=== PATIENT | male | born 1965 | race Hispanic/Latino ===

== ENCOUNTER 2016-10-16 14:42 | Inpatient (IN) | payer OTHER ==
--- NOTE | 2016-10-16 15:09 | ED PDOC ---
HPI:STROKE - Time Time: 15:07 - Historian Historian: Patient - Chief Complaint Chief Complaint: Weakness - Onset Date: 10/16/16 Time: 07:00 Onset: Hours (8) - Timing Timing: Currently Symptomatic - Context Context: Standing - Location Locate left: Upper extremity - Severity of pain Maximum severity:: Moderate Pain Scale:: 0 Severity Current: Moderate Pain Scale:: 0 - Associated Symptoms Associated symptoms:: Headache, Visual (Blurry) - Exacerbated by Exacerbated by:: Nothing - Relieved by Relieved by:: Nothing - TPA Positive for Contraindication: Yes Reason tPA is not being Administered: 8 hrs since onset NIHSS Stroke Scale - How Severe is the Stroke Level of Consciousness: 0=Alert LOC to Questions: 0=Both comments correct LOC to commands: 0=Obeys both correctly Best Gaze: 0=Normal Visual: 1=Partial hemianopia Facial: 0=Normal Motor Arm - Left: 1=Drift noted before 10 sec Motor Arm - Right: 0=No drift Motor Leg - Left: 1=Drift before 5 sec Motor Leg - Right: 0=No drift Limb Ataxia: 0=Absent Sensory: 0=Normal Best Language: 0=No aphasia Dysarthia: 0=Normal articulation Extinction & Inattention (Neglect): 1=Partial neglect (mild valerie-attention) Score: 4 rTPA Inclusion/Exclusion - Refusal of Treatment Patient Refused Treatment: No - Inclusion Criteria for Altepase Patient is 18 years or Older: Yes The Clinical Diagnosis of Ischemic Stroke That is Causing a Potentially Disabling Neurological Deficit: Yes Time of Onset is Well Established to be Less Than 270 Minute Before Treatment Would Begin: No Risk/Benefit Discussed With Patient/Family Member Present: No Past Medical History Vital Signs: Last Vital Signs Temp 98.4 F 10/16/16 14:55 Pulse 108 H 10/16/16 14:55 Resp 16 10/16/16 14:55 BP 144/95 H 10/16/16 14:55 Pulse Ox 96 10/16/16 14:55 - Medical History PMH: HTN, Malignancy (Thyroid, bladder) Other PMH: GI bleed - Surgical History Other surgeries: s/p thyroidectomy, parathyroidectomy - Family History Family History: States: Unknown Family Hx - Allergies Allergies/Adverse Reactions: Allergies Allergy/AdvReac Type Severity Reaction Status Date / Time Penicillins AdvReac ANAPHYLAXIS Verified 10/16/16 15:00 Review of Systems ROS Statement: Except As Marked, All Systems Reviewed And Found Negative Neurological: Positive for: Weakness (Left arm and left leg), Headache Physical Exam - Reviewed Nursing Documentation Reviewed: Yes Vital Signs Reviewed: Yes - Physical Exam Appears: Positive for: Non-toxic, No Acute Distress Head Exam: Positive for: ATRAUMATIC, NORMAL INSPECTION, NORMOCEPHALIC Skin: Positive for: Normal Color, Warm, DRY Eye Exam: Positive for: EOMI, Normal appearance, PERRL ENT: Positive for: Normal ENT Inspection Neck: Positive for: Normal, Painless ROM Cardiovascular/Chest: Positive for: Regular Rate, Rhythm Respiratory: Positive for: CNT, Normal Breath Sounds Gastrointestinal/Abdominal: Positive for: Normal Exam, Bowel Sounds, Soft Back: Positive for: Normal Inspection Extremity: Positive for: Normal ROM Neurologic/Psych: Positive for: Alert, Oriented, Motor/Sensory Deficits (Motor left upper and lower drift before 10 seconds. Decreased sensation left upper and lower ext. Extinction right gaze.) - ECG O2 Sat by Pulse Oximetry: 96 Medical Decision Making Medical Decision Making: Discussed with Dr. Brito, neurologist, recommends ASA 81 mg, Magnesium Sulfate 2 gms IV and MRI/MRA in AM Disposition - Clinical Impression Clinical Impression: Cerebrovascular accident (CVA) - Patient ED Disposition Is Patient to be Admitted: Yes - Disposition Disposition Time: 15:50 Condition: FAIR - Pt Status Changed To: Hospital Disposition Of: Inpatient - Admit Certification Admit to Inpatient:: After my assessment, the patient will require hospitalization for at least two midnights. This is because of the severity of symptoms shown, intensity of services needed, and/or the medical risk in this patient being treated as an outpatient. - POA Present On Arrival: None
--- NOTE | 2016-10-16 15:37 | CT ---
PROCEDURE: CT HEAD WITHOUT CONTRAST. HISTORY: L sided deficit, code stroke COMPARISON: None available. TECHNIQUE: Axial computed tomography images were obtained through the head/brain without intravenous contrast. Coronal and sagittal reconstructed images. Radiation dose: Total exam DLP = 867.63 mGy-cm. This CT exam was performed using one or more of the following dose reduction techniques: Automated exposure control, adjustment of the mA and/or kV according to patient size, and/or use of iterative reconstruction technique. FINDINGS: HEMORRHAGE: No intracranial hemorrhage. BRAIN: No mass effect or edema. No atrophy or chronic microvascular ischemic changes. VENTRICLES: Unremarkable. No hydrocephalus. CALVARIUM: Unremarkable. PARANASAL SINUSES: Unremarkable as visualized. No significant inflammatory changes. MASTOID AIR CELLS: Unremarkable as visualized. No inflammatory changes. OTHER FINDINGS: None. IMPRESSION: No acute intracranial abnormalities. No significant findings to account for the clinical presentation. Code stroke protocol: Study completed 15:11. Radiologist notified 15:26. Results conveyed verbally at 15:33. I discussed the findings with the attending physician in the emergency department Levon Horner MD. Interpretation finalized and available for review 15:36. October 16, 2016.
[2016-10-16] MEDS ORDERED: Magnesium Sulfate 2 GM in Sodium Chloride 0.9% 100 ML IVPB ONE (15:46)
[2016-10-16] MEDS ORDERED: Sodium Chloride 0.9% 1,000 ML IV STA (15:46)
[2016-10-16 15:52] LABS: BASO % 1.1 % (0.0-2.0); EOS # 0.2 K/uL (0.0-0.7); EOS % 5.3 % (0.0-4.0); HEMATOCRIT 36.3 % (35.0-51.0); LYMPH # 1.5 K/uL (1.0-4.3); LYMPH % 35.5 % (20.0-40.0); MEAN CELL VOLUME 83.3 fl (80.0-94.0); MEAN CORPUSCULAR HEMOGLOBIN 27.1 pg (27.0-31.0); MEAN CORPUSCULAR HGB CONC 32.5 g/dL (33.0-37.0); MEAN PLATELET VOLUME 7.2 fl (7.2-11.7); MONO # 0.5 K/uL (0.0-0.8); MONO % 12.6 % (0.0-10.0); NEUT # 1.9 K/uL (1.8-7.0); NEUT % 45.5 % (50.0-75.0); NRBC % 0.1 % (0.0-0.0); RED CELL DISTRIBUTION WIDTH 17.9 % (11.5-14.5); WHITE BLOOD COUNT 4.2 K/uL (4.8-10.8)
[2016-10-16 15:58] LABS: ALB/GLOB RATIO 1.3 (1.0-2.1); ALCOHOL SERUM < 10 mg/dl (0-10); ALKALINE PHOSPHATASE 132 U/L (38-126); ALT/SGPT 34 U/L (21-72); AST/SGOT 30 U/L (17-59); BILIRUBIN,TOTAL 0.3 mg/dl (0.2-1.3); BLOOD UREA NITROGEN 22 mg/dl (9-20); CALCIUM 9.5 mg/dL (8.4-10.2); CARBON DIOXIDE 24 mmol/L (22-30); CHLORIDE 108 mmol/L (98-107); CHOLESTEROL 106 mg/dL (0-199); GFR AFRICAN-AMERICAN > 60; GLUCOSE,RANDOM 115 mg/dL (75-110); POTASSIUM 4.2 MMOL/L (3.6-5.0); SODIUM 149 mmol/l (132-148); TOTAL PROTEIN 7.3 G/DL (6.3-8.2)
--- NOTE | 2016-10-16 16:07 | RAD ---
HISTORY: Code stroke protocol. Portable study 15:39. COMPARISON: No prior. FINDINGS: LUNGS: No active pulmonary disease. PLEURA: No significant pleural effusion identified, no pneumothorax apparent. CARDIOVASCULAR: No radiographic findings to suggest acute or significant cardiovascular disease. Low OSSEOUS STRUCTURES: No significant abnormalities. VISUALIZED UPPER ABDOMEN: Normal. OTHER FINDINGS: None. IMPRESSION: No active disease.
[2016-10-16 16:08] LABS: PARTIAL THROMBOPLASTIN TIME 27.3 SECONDS (23.3-32.5)
--- NOTE | 2016-10-16 16:45 | CP.PCM.CON ---
History of Present Illness - History of Present Illness History of Present Illness: Mr. Lemus is a 51-year-old man with a past medical history of smoking, bladder cancer and thyroid cancer with lymph node involvement on the right, who states that when he woke up this morning, he had left leg numbness and weakness that progressed to left arm numbness and weakness. He also complains of a right sided headache as well as nausea. He denies chest pain, shortness of breath, abdominal pain or other associated symptoms. Review of Systems - Review of Systems All systems: reviewed and no additional remarkable complaints except Past Patient History - Infectious Disease Hx of Infectious Diseases: None - CARDIAC Hx Hypertension: Yes Meds Allergies/Adverse Reactions: Allergies Allergy/AdvReac Type Severity Reaction Status Date / Time Penicillins AdvReac ANAPHYLAXIS Verified 10/16/16 15:00 - Medications Medications: Current Medications Sodium Chloride (Sodium Chloride 0.9%) 1,000 mls @ 100 mls/hr IV .Q10H STA Stop: 10/17/16 01:45 Magnesium Sulfate (Magnesium Sulfate 2 Gm/50 Ml Water) 50 mls @ 50 mls/hr IV ONCE ONE Stop: 10/16/16 16:59 Physical Exam - Constitutional Appears: Agitated - Head Exam Head Exam: ATRAUMATIC, NORMAL INSPECTION, NORMOCEPHALIC - Eye Exam Eye Exam: EOMI, Normal appearance, PERRL Additional comments: right gaze preference - ENT Exam ENT Exam: Mucous Membranes Moist, Normal Exam - Neck Exam Neck exam: Positive for: Normal Inspection - Respiratory Exam Respiratory Exam: Clear to Auscultation Bilateral, NORMAL BREATHING PATTERN - Cardiovascular Exam Cardiovascular Exam: REGULAR RHYTHM - Neurological Exam Neurological exam: Alert, CN II-XII Intact Additional comments: NIHSS = 6 - Expanded Neurological Exam Expanded Patient oriented to: person, place, time Cranial nerves: Facial Palsey w/o Forehead Movement: Abnormal Left, Facial Sensation: Abnormal Left, Gag Reflex: Normal, Nystagmus: Normal Ataxia: No Cerebellar Function: Finger to Nose: Normal, Heel to Pineda: Abnormal Left Upper motor neuron: Babinski Sign: Abnormal Left, Sensory Extinction: Abnormal Left Sensory exam: Lower Extremity 2 Point Discrimination: Abnormal Left, Lower Extremity Light Touch: Abnormal Left, Lower Extremity Pin Prick: Abnormal Left, Lower Extremity Temperature: Abnormal Left, Upper Extremity 2 Point Discrimination: Abnormal Left, Upper Extremity Light Touch: Abnormal Left, Upper Extremity Pin Prick: Abnormal Left, Upper Extremity Temperature: Abnormal Left Neuro motor strength exam: Left Upper Extremity: 3, Right Upper Extremity: 5, Left Lower Extremity: 2/1, Right Lower Extremity: 5 DTR: Achilles Tendon Left: 3+, Achilles Tendon Right: 2+, Bicep Left: 3+, Bicep Right: 2+, Brachioradialis Left: 3+, Brachioradialis Right: 2+, Patellar Left: 3 +, Patellar Right: 2+, Tricep Left: 3+, Tricep Right: 2+ - Psychiatric Exam Psychiatric exam: Agitated - Skin Skin Exam: Dry, Intact, Normal Color, Warm Results - Vital Signs Recent Vital Signs: Last Vital Signs Temp 98.4 F 10/16/16 14:55 Pulse 108 H 10/16/16 14:55 Resp 16 10/16/16 14:55 BP 144/95 H 10/16/16 14:55 Pulse Ox 96 10/16/16 15:50 - Labs Result Diagrams: 10/16/16 15:44 10/16/16 15:44 Labs: Laboratory Results - last 24 hr 10/16/16 15:44 WBC 4.2 L RBC 4.35 L Hgb 11.8 L Hct 36.3 MCV 83.3 MCH 27.1 MCHC 32.5 L RDW 17.9 H Plt Count 183 MPV 7.2 Neut % (Auto) 45.5 L Lymph % (Auto) 35.5 [place] % (Auto) 12.6 H Eos % (Auto) 5.3 H Baso % (Auto) 1.1 Neut # 1.9 Lymph # 1.5 [place] # 0.5 Eos # 0.2 Baso # 0.0 PT 10.6 INR 1.02 APTT 27.3 Sodium 149 H Potassium 4.2 Chloride 108 H Carbon Dioxide 24 Anion Gap 21 H BUN 22 H Creatinine 1.0 Est GFR ( Amer) > 60 Est GFR (Non-Af Amer) > 60 Random Glucose 115 H Calcium 9.5 Total Bilirubin 0.3 AST 30 ALT 34 Alkaline Phosphatase 132 H Troponin I < 0.0120 Total Protein 7.3 Albumin 4.2 Globulin 3.2 Albumin/Globulin Ratio 1.3 Triglycerides 153 H Cholesterol 106 LDL Cholesterol Direct 48 HDL Cholesterol 42 Alcohol, Quantitative < 10 Blood Type O POSITIVE Antibody Screen Negative BBK History Checked No verified bt - Imaging and Cardiology CT scan - head Status: Image reviewed by me, Report reviewed by me (No acute findings.) Assessment & Plan (1) CVA (cerebral vascular accident) Assessment and Plan: Likely due to hypercoagulable state in the setting of metastatic disease. I recommend starting aspirin 81 mg daily, statin, magnesium sulfate 2 grams IV, normal saline at 100 mL/hr, permissive hypertension (do not treat unless BP is > 220/110 mm Hg), DVT Px, CTA of the head/neck, MRI brain without contrast and MRA head/neck without contrast when logistically possible. PT/OT. Thank you very much for this consultation. Status: Acute
--- NOTE | 2016-10-16 17:00 | CP.PCM.HP ---
History of Present Illness - History of Present Illness History of Present Illness: 51 yo male with history of HTN, Bladder cancer and Thyroid cancer came in complaining of left facial numbness and weakness as well as left upper and lower limbs numbness and weakness since 7am. He also complained of drooling when eating. He claimed of falling on his right 2 times before going to the hospital. Patient also complained of nausea and headache but denied chest pain, SOB, fever or chills. Present on Admission - Present on Admission Any Indicators Present on Admission: No History of DVT/PE: No History of Uncontrolled Diabetes: No Urinary Catheter: No Decubitus Ulcer Present: No Review of Systems - Review of Systems All systems: reviewed and no additional remarkable complaints except (aside from those mentioned above, 12 point system review were negative by me) Past Patient History - Infectious Disease Hx of Infectious Diseases: None - Past Social History Smoking Status: Heavy Smoker > 10 Cigarettes Daily Chewing Tobacco Use: No Cigar Use: No Alcohol: None Drugs: Prescription medications - CARDIAC Hx Hypertension: Yes - PULMONARY Hx Respiratory Disorders: No - NEUROLOGICAL Hx Neurological Disorder: No - HEENT Hx HEENT Problems: No - RENAL Hx Chronic Kidney Disease: No - ENDOCRINE/METABOLIC Hx Hypothyroidism: Yes - HEMATOLOGICAL/ONCOLOGICAL Hx Anemia: Yes (from chronic blood loss probably from GI bleed (history of melena)) Hx Blood Transfusions: Yes Hx Cancer: Yes (bladder cancer 2003; thyroid cancer 2012; precancerous colon lesion) - INTEGUMENTARY Hx Dermatological Problems: No - MUSCULOSKELETAL/RHEUMATOLOGICAL Hx Back Pain: Yes Hx Falls: Yes Hx Herniated Disk: Yes - GASTROINTESTINAL Other/Comment: history of melena; history of precancerous lesions in the colon - GENITOURINARY/GYNECOLOGICAL Hx Bladder Cancer: Yes (bladder surgery with prostate surgery 2003) Hx Prostate Cancer: Yes (had prostatectomy and radiation 2003) - SURGICAL HISTORY Hx Parathyroidectomy: Yes (with Thyroidectomy ) Hx Thyroidectomy: Yes (2012 because of Thyroid Cancer) - ANESTHESIA Hx Anesthesia: Yes Hx Anesthesia Reactions: No Meds Allergies/Adverse Reactions: Allergies Allergy/AdvReac Type Severity Reaction Status Date / Time Penicillins AdvReac ANAPHYLAXIS Verified 10/16/16 15:00 Physical Exam - Constitutional Appears: No Acute Distress - Head Exam Head Exam: absent: NORMAL INSPECTION (left facial weakness) - Eye Exam Eye Exam: EOMI, PERRL - ENT Exam ENT Exam: Mucous Membranes Moist - Neck Exam Neck exam: Negative for: Meningismus - Respiratory Exam Respiratory Exam: absent: Rhonchi, Wheezes, Respiratory Distress - Cardiovascular Exam Cardiovascular Exam: REGULAR RHYTHM, +S1, +S2 - GI/Abdominal Exam GI & Abdominal Exam: Soft. absent: Tenderness - Rectal Exam Rectal Exam: Deferred - Extremities Exam Extremities exam: Negative for: calf tenderness, pedal edema - Neurological Exam Neurological exam: Alert, Oriented x3 - Psychiatric Exam Psychiatric exam: Normal Affect - Skin Skin Exam: Dry, Intact Results - Vital Signs Recent Vital Signs: Last Vital Signs Temp 98.4 F 10/16/16 14:55 Pulse 108 H 10/16/16 14:55 Resp 16 10/16/16 14:55 BP 144/95 H 10/16/16 14:55 Pulse Ox 96 10/16/16 15:50 - Labs Result Diagrams: 10/16/16 15:44 10/16/16 15:44 Labs: Laboratory Results - last 24 hr 10/16/16 15:44 WBC 4.2 L RBC 4.35 L Hgb 11.8 L Hct 36.3 MCV 83.3 MCH 27.1 MCHC 32.5 L RDW 17.9 H Plt Count 183 MPV 7.2 Neut % (Auto) 45.5 L Lymph % (Auto) 35.5 [place] % (Auto) 12.6 H Eos % (Auto) 5.3 H Baso % (Auto) 1.1 Neut # 1.9 Lymph # 1.5 [place] # 0.5 Eos # 0.2 Baso # 0.0 PT 10.6 INR 1.02 APTT 27.3 Sodium 149 H Potassium 4.2 Chloride 108 H Carbon Dioxide 24 Anion Gap 21 H BUN 22 H Creatinine 1.0 Est GFR ( Amer) > 60 Est GFR (Non-Af Amer) > 60 Random Glucose 115 H Calcium 9.5 Total Bilirubin 0.3 AST 30 ALT 34 Alkaline Phosphatase 132 H Troponin I < 0.0120 Total Protein 7.3 Albumin 4.2 Globulin 3.2 Albumin/Globulin Ratio 1.3 Triglycerides 153 H Cholesterol 106 LDL Cholesterol Direct 48 HDL Cholesterol 42 Alcohol, Quantitative < 10 Blood Type O POSITIVE Antibody Screen Negative BBK History Checked No verified bt Assessment & Plan (1) CVA (cerebral vascular accident) Status: Acute Comment: admit to telemetry. swallow evaluation. keep NPO until patient pass swallow evaluation. neuro consult with Dr Alisha rand. Bilateral Carotid Doppler. MRI of brain without contrast. ECHO. PT/OT evaluation (2) HTN (hypertension) Status: Acute Comment: BP stable. continue to monitor and allow permissive hypertension (3) Hypothyroid Status: Acute Comment: follow TSH in am. hold Levothyroxine until pass swallow eval (4) Chronic back pain Status: Acute Comment: Dilaudid 1mg IV q 4hrs prn for pain (5) DVT prophylaxis Status: Acute Comment: venodyne boots while in bed
[2016-10-16 17:01] LABS: ABG ALLEN TEST YES; ARTERIAL BLOOD GAS HCO3 27.4 mmol/L (21-28); ARTERIAL BLOOD GAS PH 7.41 (7.35-7.45); ARTERIAL BLOOD GAS PO2 78 mm/Hg (80-100)
--- NOTE | 2016-10-16 20:59 | CARD ---
APPROVED REPORT EKG Measurement Heart [id number] <Conclusion> Normal sinus rhythm Normal ECG
[2016-10-17 05:04] LABS: BLOOD UREA NITROGEN 19 mg/dl (9-20); CALCIUM 8.8 mg/dL (8.4-10.2); CARBON DIOXIDE 26 mmol/L (22-30); CHLORIDE 109 mmol/L (98-107); CHOLESTEROL 89 mg/dL (0-199); GFR AFRICAN-AMERICAN > 60; GLUCOSE,RANDOM 93 mg/dL (75-110); POTASSIUM 4.2 MMOL/L (3.6-5.0); SODIUM 147 mmol/l (132-148)
[2016-10-17 05:08] LABS: BASO % 0.9 % (0.0-2.0); EOS # 0.2 K/uL (0.0-0.7); EOS % 5.3 % (0.0-4.0); HEMATOCRIT 34.3 % (35.0-51.0); LYMPH # 1.5 K/uL (1.0-4.3); LYMPH % 41.3 % (20.0-40.0); MEAN CELL VOLUME 84.6 fl (80.0-94.0); MEAN CORPUSCULAR HEMOGLOBIN 26.9 pg (27.0-31.0); MEAN CORPUSCULAR HGB CONC 31.8 g/dL (33.0-37.0); MEAN PLATELET VOLUME 7.1 fl (7.2-11.7); MONO # 0.5 K/uL (0.0-0.8); MONO % 12.8 % (0.0-10.0); NEUT # 1.4 K/uL (1.8-7.0); NEUT % 39.7 % (50.0-75.0); RED CELL DISTRIBUTION WIDTH 18.5 % (11.5-14.5); WHITE BLOOD COUNT 3.6 K/uL (4.8-10.8)
[2016-10-17 05:35] LABS: THYROID STIMULATING HORMONE 2.03 mIU/ML (0.46-4.68)
[2016-10-17] MEDS: Levothyroxine 125 MCG TAB PO SCH (09:50)
--- NOTE | 2016-10-17 10:44 | US ---
PROCEDURE: Carotid vertebral duplex sonography HISTORY: CVA COMPARISON: None TECHNIQUE: Grayscale, color Doppler and spectral Doppler assessment of the carotid system bilaterally. This includes common carotid, internal carotid arteries Vertebral artery assessment with respect to direction of flow (antegrade or retrograde) FINDINGS: RIGHT carotid system: Assessment of plaque: No appreciable plaque formation Peak systolic ICA velocity: 96.5 cm/sec End-diastolic velocity: 42.1 cm/sec ICA/CCA ratio: 61.2. Vertebral artery flow: Antegrade LEFT carotid system: Assessment of plaque: No appreciable plaque formation Peak systolic ICA velocity: 79.1 cm/sec End-diastolic velocity: 43.9 cm/sec ICA/CCA ratio: 1.0 Vertebral artery flow: Antegrade IMPRESSION: Right ICA degree of stenosis: Less than 50% Left ICA degree of stenosis: Less than 50% Reference Internal Carotid Artery (ICA) Peak Systolic Velocity (PSV) for above: 1. Less than 50% stenosis less than 125 cm/s peak systolic velocity 2. 50-69% stenosis 125-230cm/s peak systolic velocity 3. Greater than 70% but less than near occlusion greater than 230 cm/s peak systolic velocity
--- NOTE | 2016-10-17 12:28 | CP.PCM.PN ---
Subjective - Date & Time of Evaluation Date of Evaluation: 10/17/16 Time of Evaluation: 11:30 - Subjective Subjective: No fever complains of weakness left sided, sl better no CP no SOB no abd pain facial numbness better Objective - Vital Signs/Intake and Output Vital Signs (last 24 hours): Temp Pulse Resp BP Pulse Ox 97.7 F 56 L 20 113/74 96 10/17/16 08:37 10/17/16 08:37 10/17/16 08:37 10/17/16 08:37 10/17/16 08:37 - Medications Medications: Current Medications Aspirin (Ecotrin) 81 mg PO DAILY [facility] Last Admin: 10/17/16 09:49 Dose: Not Given Atorvastatin Calcium (Lipitor) 40 mg PO HS [facility] Last Admin: 10/16/16 23:48 Dose: 40 mg Clonazepam (Klonopin) 1 mg PO BID [facility] Last Admin: 10/17/16 09:49 Dose: Not Given Hydromorphone HCl (Dilaudid) 1 mg IVP Q4 PRN PRN Reason: Pain, moderate (4-7) Last Admin: 10/17/16 10:54 Dose: 1 mg Hydromorphone HCl (Dilaudid) 2 mg PO Q3H PRN PRN Reason: Pain, severe (8-10) Levothyroxine Sodium (Synthroid) 125 mcg PO DAILY@0630 [facility] Last Admin: 10/17/16 09:50 Dose: Not Given Ondansetron HCl (Zofran Inj) 4 mg IVP Q4 PRN PRN Reason: Nausea/Vomiting Last Admin: 10/17/16 04:55 Dose: 4 mg Paroxetine HCl (Paxil) 40 mg PO DAILY [facility] Last Admin: 10/17/16 09:50 Dose: Not Given Quetiapine Fumarate (Seroquel) 50 mg PO BID [facility] Last Admin: 10/17/16 09:50 Dose: Not Given Tamsulosin HCl (Flomax) 0.8 mg PO [facility] Last Admin: 10/16/16 23:50 Dose: 0.8 mg - Labs Labs: 10/17/16 04:00 10/17/16 04:00 PT 10.6 SECONDS (9.6-11.2) 10/16/16 15:44 INR 1.02 (0.92-1.08) 10/16/16 15:44 APTT 27.3 SECONDS (23.3-32.5) 10/16/16 15:44 - Constitutional Appears: No Acute Distress - Head Exam Head Exam: NORMAL INSPECTION, NORMOCEPHALIC - Eye Exam Eye Exam: Normal appearance, PERRL Pupil Exam: NORMAL ACCOMODATION - ENT Exam ENT Exam: Mucous Membranes Dry, Normal External Ear Exam - Neck Exam Neck Exam: Full ROM. absent: Meningismus - Respiratory Exam Respiratory Exam: NORMAL BREATHING PATTERN. absent: Respiratory Distress - Cardiovascular Exam Cardiovascular Exam: REGULAR RHYTHM, +S1, +S2 - GI/Abdominal Exam GI & Abdominal Exam: Soft, Normal Bowel Sounds. absent: Tenderness - Extremities Exam Extremities Exam: Normal Capillary Refill. absent: Calf Tenderness, Pedal Edema - Back Exam Back Exam: absent: CVA tenderness (L), CVA tenderness (R), paraspinal tenderness , vertebral tenderness - Neurological Exam Neurological Exam: Alert, Awake, Oriented x3 Neuro motor strength exam: Left Upper Extremity: 4, Right Upper Extremity: 5, Left Lower Extremity: 4, Right Lower Extremity: 5 - Psychiatric Exam Psychiatric exam: Flat Affect - Skin Skin Exam: Dry, Normal Color, Warm Assessment and Plan (1) CVA (cerebral vascular accident) Status: Suspected (2) Chronic back pain Status: Chronic (3) HTN (hypertension) Status: Chronic (4) Hypothyroid Status: Chronic (5) DVT prophylaxis Status: Acute - Assessment and Plan (Free Text) Assessment: 51 y/o gent with hx of HTN, Hypothyroidism, Thyroid and Prostate CA, 2was brought in bec of left sided weakness and numbness. (1) CVA (cerebral vascular accident) Status: Acute CT of head : negative cont ASA and statin Neurology consulted- Dr Brito MRI /MRA of brain, MRA of neck ECHo Carotid sono; no stenosi PT/OT comnsult Speech for swallow- to start regular with thin liq (2) HTN (hypertension) Status: Acute BP stable. continue to monitor and allow permissive hypertension (3) Hypothyroid Status: Acute cont Levothyroxine (4) Chronic back pain Status: Acute cont PO Dilaudid ( 5) Depression/Anxiety cont Paxil, Klonopin and Seroquel (6) DVT prophylaxis Status: Acute Lovenox, venodyne boots while in bed
[2016-10-17] MEDS ORDERED: Enoxaparin 40 mg Syringe SC STA (14:52)
--- NOTE | 2016-10-17 15:39 | CARD ---
APPROVED REPORT EXAM: Two-dimensional and M-mode echocardiogram with Doppler and color Doppler. Other Information Quality : GoodRhythm : NSR INDICATION CVA/TIA 2D DIMENSIONS IVSd1.38 (0.7-1.1cm)LVDd4.12 (3.9-5.9cm) LVOT Diameter2.29 (1.8-2.4cm)PWd1.11 (0.7-1.1cm) IVSs1.86 (0.8-1.2cm)LVDs3.15 (2.5-4.0cm) FS (%) 23.4 %PWs1.55 (0.8-1.2cm) M-Mode DIMENSIONS Left Atrium (MM)5.27 (2.5-4.0cm)IVSd0.99 (0.7-1.1cm) Aortic Root3.46 (2.2-3.7cm)LVDd6.65 (4.0-5.6cm) Aortic Cusp Exc.2.34 (1.5-2.0cm)PWd0.96 (0.7-1.1cm) IVSs1.65 cmFS (%) 44 % LVDs3.71 (2.0-3.8cm)PWs1.39 cm Mitral Valve MV E Auyzvmbm39.6cm/sMV DECEL [id number] A Edfivioj27.4cm/s MV [id number] ratio1.0MVA (PHT)2.65cm2 TDI Lateral E' Peak V9.37cm/sMedial E' Peak V6.76cm/sE/Lateral E'8.8 E/Medial E'12.2 Pulmonary Valve PV Peak Xvzxgklo05.8cm/s LEFT VENTRICLE The left ventricle is normal size. There is normal left ventricular wall thickness. The left ventricular function is normal. The left ventricular ejection fraction is 55% There is normal LV segmental wall motion. The left ventricular diastolic function is normal. No left ventricle thrombus noted on this study. There is no ventricular septal defect visualized. There is no left ventricular aneurysm. There is no mass noted in the left ventricle. RIGHT VENTRICLE The right ventricle is normal size. There is normal right ventricular wall thickness. The right ventricular systolic function is normal. ATRIA The left atrium size is normal. The right atrium size is normal. The interatrial septum is intact with no evidence for an atrial septal defect. AORTIC VALVE The aortic valve is normal in structure and function. No aortic regurgitation is present. There is no aortic valvular stenosis. There is no aortic valvular vegetation. MITRAL VALVE The mitral valve is normal in structure and function. There is no evidence of mitral valve prolapse. There is no mitral valve stenosis. There is no mitral valve regurgitation noted. TRICUSPID VALVE The tricuspid valve is normal in structure and function. There is no tricuspid valve regurgitation noted. There is no tricuspid valve prolapse or vegetation. There is no tricuspid valve stenosis. PULMONIC VALVE The pulmonary valve is normal in structure and function. There is no pulmonic valvular regurgitation. There is no pulmonic valvular stenosis. GREAT VESSELS The aortic root is normal in size. The ascending aorta is normal in size. The IVC is normal in size and collapses >50% with inspiration. PERICARDIAL EFFUSION The pericardium appears normal. There is no pleural effusion. <Conclusion> Normal Echocardiogram
[2016-10-17 23:57] VITALS: RESP 19
[2016-10-18 05:21] VITALS: BP 139/86; TEMP 97.8; O2SAT 95
[2016-10-18] MEDS: Levothyroxine 125 MCG TAB PO SCH (05:31)
[2016-10-18 07:11] LABS: HEMATOCRIT 37.2 % (35.0-51.0); MEAN CELL VOLUME 83.4 fl (80.0-94.0); MEAN CORPUSCULAR HEMOGLOBIN 27.1 pg (27.0-31.0); MEAN CORPUSCULAR HGB CONC 32.5 g/dL (33.0-37.0); RED CELL DISTRIBUTION WIDTH 18.3 % (11.5-14.5); WHITE BLOOD COUNT 3.8 K/uL (4.8-10.8)
[2016-10-18 07:12] LABS: BLOOD UREA NITROGEN 16 mg/dl (9-20); CALCIUM 9.4 mg/dL (8.4-10.2); CARBON DIOXIDE 27 mmol/L (22-30); CHLORIDE 106 mmol/L (98-107); GFR AFRICAN-AMERICAN > 60; GLUCOSE,RANDOM 100 mg/dL (75-110); POTASSIUM 4.1 MMOL/L (3.6-5.0); SODIUM 147 mmol/l (132-148)
[2016-10-18] MEDS ORDERED: Aspirin 325 mg EC Tablets PO SCH (07:27)
[2016-10-18] MEDS ORDERED: Enoxaparin 40 mg Syringe SC SCH (09:00)
[2016-10-18 10:32] VITALS: PULSE 82
--- NOTE | 2016-10-18 10:33 | CP.PCM.DIS ---
Provider - Provider Date of Admission: 10/16/16 15:46 Attending physician: Jeff Leahy MD Primary care physician: Non [facility] Provider Consults: Dr Brito Time Spent in preparation of Discharge (in minutes): 20 Diagnosis - Discharge Diagnosis (1) CVA (cerebral vascular accident) Status: Suspected Comment: refused MRI. as per hospitalist who saw patient yesterday, there was almost complete recovery of strenght on the left side and patient has been walking around (2) HTN (hypertension) Status: Chronic Comment: BP was stable (3) Hypothyroid Status: Chronic Comment: on Levothyroxine (4) Chronic back pain Status: Chronic Comment: on opiates at home (5) Depression Status: Chronic Comment: on Paxil, Klonopin and Seroquel [facility] Course - Lab Results Lab Results: Most Recent Lab Values WBC 3.8 K/uL (4.8-10.8) L 10/18/16 05:40 RBC 4.46 Mil/uL (4.40-5.90) 10/18/16 05:40 Hgb 12.1 g/dL (12.0-18.0) 10/18/16 05:40 Hct 37.2 % (35.0-51.0) 10/18/16 05:40 MCV 83.4 fl (80.0-94.0) 10/18/16 05:40 MCH 27.1 pg (27.0-31.0) 10/18/16 05:40 MCHC 32.5 g/dL (33.0-37.0) L 10/18/16 05:40 RDW 18.3 % (11.5-14.5) H 10/18/16 05:40 Plt Count 167 K/uL (130-400) 10/18/16 05:40 MPV 7.1 fl (7.2-11.7) L 10/17/16 04:00 Neut % (Auto) 39.7 % (50.0-75.0) L 10/17/16 04:00 Lymph % (Auto) 41.3 % (20.0-40.0) H 10/17/16 04:00 [place] % (Auto) 12.8 % (0.0-10.0) H 10/17/16 04:00 Eos % (Auto) 5.3 % (0.0-4.0) H 10/17/16 04:00 Baso % (Auto) 0.9 % (0.0-2.0) 10/17/16 04:00 Neut # 1.4 K/uL (1.8-7.0) L 10/17/16 04:00 Lymph # 1.5 K/uL (1.0-4.3) 10/17/16 04:00 [place] # 0.5 K/uL (0.0-0.8) 10/17/16 04:00 Eos # 0.2 K/uL (0.0-0.7) 10/17/16 04:00 Baso # 0.0 K/uL (0.0-0.2) 10/17/16 04:00 PT 10.6 SECONDS (9.6-11.2) 10/16/16 15:44 INR 1.02 (0.92-1.08) 10/16/16 15:44 APTT 27.3 SECONDS (23.3-32.5) 10/16/16 15:44 pCO2 45 mm/Hg (35-45) 10/16/16 16:45 pO2 78 mm/Hg (80-100) L 10/16/16 16:45 HCO3 27.4 mmol/L (21-28) 10/16/16 16:45 ABG pH 7.41 (7.35-7.45) 10/16/16 16:45 ABG Total CO2 29.9 mmol/L (22-28) H 10/16/16 16:45 ABG O2 Saturation 97.4 % (95-98) 10/16/16 16:45 ABG Base Excess 3.2 mmol/L (-2.0-3.0) H 10/16/16 16:45 Sergey Test Yes 10/16/16 16:45 ABG Potassium 4.4 mmol/L (3.6-5.2) 10/16/16 16:45 A-a O2 Difference 15.0 mm/Hg 10/16/16 16:45 Sodium 142.0 mmol/L (132-148) 10/16/16 16:45 Chloride 112.0 mmol/L (98-107) H 10/16/16 16:45 Glucose 98 mg/dL (75-110) 10/16/16 16:45 Lactate 0.9 mmol/L (0.7-2.1) 10/16/16 16:45 FiO2 21.0 % 10/16/16 16:45 Sodium 147 mmol/l (132-148) 10/18/16 05:40 Potassium 4.1 MMOL/L (3.6-5.0) 10/18/16 05:40 Chloride 106 mmol/L (98-107) 10/18/16 05:40 Carbon Dioxide 27 mmol/L (22-30) 10/18/16 05:40 Anion Gap 18 (10-20) 10/18/16 05:40 BUN 16 mg/dl (9-20) 10/18/16 05:40 Creatinine 0.8 mg/dL (0.8-1.5) 10/18/16 05:40 Est GFR ( Amer) > 60 10/18/16 05:40 Est GFR (Non-Af Amer) > 60 10/18/16 05:40 POC Glucose (mg/dL) 176 mg/dL (65-110) H 10/16/16 15:03 Random Glucose 100 mg/dL (75-110) 10/18/16 05:40 Hemoglobin A1c 6.3 % (4.2-6.5) 10/16/16 15:44 Calcium 9.4 mg/dL (8.4-10.2) 10/18/16 05:40 Total Bilirubin 0.3 mg/dl (0.2-1.3) 10/16/16 15:44 AST 30 U/L (17-59) 10/16/16 15:44 ALT 34 U/L (21-72) 10/16/16 15:44 Alkaline Phosphatase 132 U/L (38-126) H 10/16/16 15:44 Troponin I < 0.0120 ng/mL (0.00-0.120) 10/16/16 15:44 Total Protein 7.3 G/DL (6.3-8.2) 10/16/16 15:44 Albumin 4.2 g/dL (3.5-5.0) 10/16/16 15:44 Globulin 3.2 gm/dL (2.2-3.9) 10/16/16 15:44 Albumin/Globulin Ratio 1.3 (1.0-2.1) 10/16/16 15:44 Triglycerides 71 mg/DL (0-149) D 10/17/16 04:00 Cholesterol 89 mg/dL (0-199) 10/17/16 04:00 LDL Cholesterol Direct 39 mg/dL (0-129) 10/17/16 04:00 HDL Cholesterol 35 MG/DL (30-70) 10/17/16 04:00 TSH 3rd Generation 2.03 mIU/ML (0.46-4.68) 10/17/16 04:00 Arterial Blood Potassium 4.4 mmol/L (3.6-5.2) 10/16/16 16:45 Urine Opiates Screen Positive (NEGATIVE) H 10/16/16 04:11 Urine Methadone Screen Negative (NEGATIVE) 10/16/16 04:11 Ur Barbiturates Screen Negative (NEGATIVE) 10/16/16 04:11 Ur Phencyclidine Scrn Negative (NEGATIVE) 10/16/16 04:11 Ur Amphetamines Screen Negative (NEGATIVE) 10/16/16 04:11 U Benzodiazepines Scrn Positive (NEGATIVE) H 10/16/16 04:11 U Oth Cocaine Metabols Positive (NEGATIVE) H 10/16/16 04:11 U Cannabinoids Screen Negative (NEGATIVE) 10/16/16 04:11 Alcohol, Quantitative < 10 mg/dl (0-10) 10/16/16 15:44 Influenza Typ A,B (EIA) Negative for flu a/b (NEGATIVE) 10/16/16 17:59 Blood Type O POSITIVE 10/16/16 15:44 Blood Type Confirm O POSITIVE 10/16/16 15:48 Antibody Screen Negative 10/16/16 15:44 BBK History Checked No verified bt 10/16/16 15:44 - Hospital Course Hospital Course: 51 yo male with history of HTN, Bladder cancer and Thyroid cancer admitted because of left sided weakness and left facial weakness. There were some improvement in regaining his strength but patient signed out AMA today even before test were completed. Discharge Exam - Head Exam Head Exam: NORMAL INSPECTION, NORMOCEPHALIC Discharge Plan - Follow Up Plan Condition: FAIR Disposition: AGAINST MEDICAL ADVICE Referrals: Non [facility] Provider, [Primary Care Provider] -
--- NOTE | 2016-10-18 17:43 | CP.PCM.PCO ---
Physician Communication Note - Physician Communication Note Physician Communication Note: Pt signed AMA- he was all dressed up and walked to the station Addendum Addendum: 10/18/16 9:25am Pt did not want to wait for Dr Leahy to come down and sign him out, explained benefits of staying and risk signing AMA. States he was fine and understands all explanation. He staes that he regained back all his strenght and was back to normal- able to take PO. He is alert, oriented x 3 and has full mental capacity to make decisions. Pt signed AMA form.
== END 2016-10-18 09:30 | disposition left against medical advice (07) | DRG 14 ==
LOC: H.ER 14:42 → SUPCPDRO 14:42 → H.ERHOLD 15:46 → H.TEL 19:09
DX: I63.8 Other cerebral infarction (principal); C77.9 Secondary and unspecified malignant neoplasm of lymph node, unspecified; G81.94 Hemiplegia, unspecified affecting left nondominant side; R29.810 Facial weakness; E03.9 Hypothyroidism, unspecified; I10 Essential (primary) hypertension; G89.29 Other chronic pain; M54.5 Low back pain; F41.9 Anxiety disorder, unspecified; F32.9 Major depressive disorder, single episode, unspecified; F17.210 Nicotine dependence, cigarettes, uncomplicated; Z85.51 Personal history of malignant neoplasm of bladder; Z85.850 Personal history of malignant neoplasm of thyroid; Z85.46 Personal history of malignant neoplasm of prostate; Z88.0 Allergy status to penicillin; Z92.3 Personal history of irradiation